=== PATIENT | male | born 1990 | race African-American/Black ===

== ENCOUNTER 2016-08-29 15:34 | Emergency (ER) | payer BC ==
[~2016-08-29] VITALS: Ht 175.3 cm; Wt 79.0 kg
[2016-08-29 20:54] LABS: CLARITY URINE CLEAR (CLEAR); COLOR URINE YELLOW (YELLOW); GLUCOSE URINE NEGATIVE (NEGATIVE); KETONES URINE NEGATIVE (NEGATIVE); LEUKOCYTE ESTERASE URINE NEGATIVE (NEGATIVE); NITRITE URINE NEGATIVE (NEGATIVE); OCCULT BLOOD URINE NEGATIVE (NEGATIVE); PROTEIN URINE NEGATIVE (NEGATIVE); SPECIFIC GRAVITY URINE 1.026 (1.005-1.030)
[2016-08-29 21:07] VITALS: BP 138/90
== END 2016-08-29 22:03 | disposition home or self-care (01) ==
LOC: ER 15:59
DX: R30.0 Dysuria (principal); R35.0 Frequency of micturition; I10 Essential (primary) hypertension
CPT/HCPCS: 81003; 99283